=== PATIENT | female | born 1945 ===

== ENCOUNTER 2017-10-03 15:05 | Emergency (ER) | payer MEDICARE ==
[2017-10-03 15:25] VITALS: BP 107/69; PULSE 88; RESP 19; TEMP 98.7; O2SAT 99
--- NOTE | 2017-10-03 15:50 | C.PDOC ---
History Of Present Illness 72 y/o female presents to the ED for evaluation of multiple lesions throughout her body for the past 2 weeks. Patient notes that one on the top of her scalp is painful and has been draining pus. The others are described as dry. Otherwise she denies any fever, chills, nausea, or vomiting. Patient states she was working in the backyard prior to the onset and somehow became covered in ants, and she suspects this may be related. Family notes they were unable to get in touch with patients PMD, Dr. Miky Tello, and came here instead. Time Seen by Provider: 10/03/17 15:34 Chief Complaint (Nursing): Abnormal Skin Integrity History Per: Patient History/Exam Limitations: no limitations Onset/Duration Of Symptoms: Days Current Symptoms Are (Timing): Still Present Past Medical History Reviewed: Historical Data, Nursing Documentation, Vital Signs Vital Signs: Last Vital Signs Temp 98.7 F 10/03/17 15:21 Pulse 88 10/03/17 15:21 Resp 19 10/03/17 15:21 BP 107/69 10/03/17 15:21 Pulse Ox 99 10/03/17 15:57 - Medical History PMH: Arthritis, HTN, Hyperthyroidism Other Surgeries: Tubal ligation Family History: States: No Known Family Hx - Social History Hx Alcohol Use: No Hx Substance Use: No - Immunization History Hx Tetanus Toxoid Vaccination: No Hx Influenza Vaccination: No Hx Pneumococcal Vaccination: No Review Of Systems Except As Marked, All Systems Reviewed And Found Negative. Constitutional: Negative for: Fever, Chills Gastrointestinal: Negative for: Nausea, Vomiting Skin: Positive for: Lesions (throughout body) Neurological: Negative for: Weakness, Numbness Physical Exam - Physical Exam Appears: Non-toxic, No Acute Distress Skin: Warm, Dry, Other (large, raised, tender lesion to the top of her head, already draining; one to the left ear and three to abdomen, which are not draining) Head: Atraumatic, Normacephalic Eye(s): bilateral: Normal Inspection Neck: Normal ROM Chest: Symmetrical Cardiovascular: Rhythm Regular, No Murmur Respiratory: Normal Breath Sounds, No Accessory Muscle Use Extremity: Bilateral: Atraumatic, Normal Color And Temperature, Normal ROM Pulses: Left Radial: Normal, Right Radial: Normal Neurological/Psych: Oriented x3, Normal Speech, Normal Motor, Normal Sensation Gait: Steady ED Course And Treatment O2 Sat by Pulse Oximetry: 99 (RA) Pulse Ox Interpretation: Normal Medical Decision Making Medical Decision Making: Impression: Folliculitis Initial Plan: --Wound cultures sent 3:45pm Spoke with Dr. Tello, who will see patient in the office on . Patient will be discharged home with prescription for Clindamycin. Counseled regarding diagnosis and the importance of follow up. Disposition Counseled Patient/Family Regarding: Diagnosis, Need For Followup, Rx Given - Disposition Referrals: Miky Tello MD [Medical Doctor] - Disposition: HOME/ ROUTINE Disposition Time: 15:47 Condition: STABLE Additional Instructions: Follow up with Dr. Tello on 10/05 Prescriptions: Clindamycin [Cleocin] 1 cap PO QID #30 cap Instructions: Folliculitis (DC) Forms: Gen Discharge Inst Irish, [facility] (Irish) - POA Present On Arrival: None - Clinical Impression Clinical Impression: Folliculitis - Scribe Statement The provider has reviewed the documentation as recorded by the Dipti Salcido Provider Attestation: All medical record entries made by the Dipti were at my direction and personally dictated by me. I have reviewed the chart and agree that the record accurately reflects my personal performance of the history, physical exam, medical decision making, and the department course for this patient. I have also personally directed, reviewed, and agree with the discharge instructions and disposition.
== END 2017-10-03 16:24 | disposition home or self-care (01) ==
LOC: C.ER 15:05
DX: L73.9 Follicular disorder, unspecified (principal)